=== PATIENT | female | born 1980 | race Caucasian/White ===

== ENCOUNTER 2017-09-13 19:54 | Outpatient (CLI) | payer OTHER ==
--- NOTE | 2017-09-14 11:51 | Ultrasound Report ---
PELVIC ULTRASOUND: 09/13/2017 HISTORY: Pelvic and perineal pain. Family history of ovarian cancer. Last menstrual period 09/06/2017. TECHNIQUE: Transabdominal approach only of the pelvis with saved static images reviewed. FINDINGS: Normal appearing 8.6 x 3 x 3.8 cm anteverted uterus, volume 51 mL. Normal endometrial echo thickness, 6 mm. Right ovary 3.2 x 2.4 x 2.2 cm, volume 8.8 mL, normal echotexture and vascularity. Left ovary 2.6 x 2.3 x 2.6 cm, volume 8 mL. Normal echotexture and Doppler flow. Dominant follicle 1.9 x 1.4 x 1.9 cm. Free fluid: None. IMPRESSION: NEGATIVE PELVIC ULTRASOUND. A SOURCE FOR PAIN IS NOT IDENTIFIED. TD: 09/14/2017 11:38
== END 2017-09-13 19:55 | disposition home or self-care (01) ==
LOC: DI 19:54
PROVIDERS: ATTEND Nurse Practitioner Family
DX: R10.2 Pelvic and perineal pain (principal); Z80.41 Family history of malignant neoplasm of ovary
CPT/HCPCS: 76830; 76856

== ENCOUNTER 2017-12-15 23:24 | Emergency (ER) | payer OTHER ==
[2017-12-15 23:29] VITALS: BP 148/85
[2017-12-15 23:42] LABS: BILIRUBIN,URINE NEGATIVE (NEGATIVE); GLUCOSE, URINE (UA) NEGATIVE (NEGATIVE); KETONES,URINE (UA) NEGATIVE (NEGATIVE); LEUKOCYTE ESTERASE, URINE NEGATIVE (NEGATIVE); NITRITE,URINE NEGATIVE (NEGATIVE); OCCULT BLOOD,URINE TRACE-LYSE (NEGATIVE); PROTEIN,URINE NEGATIVE (NEGATIVE); UROBILINOGEN,URINE 0.2 (NORMAL) E.U./dL (NORMAL)
[2017-12-15 23:44] LABS: CLARITY,URINE CLEAR (CLEAR); HCG UR QUAL NEGATIVE
--- NOTE | 2017-12-16 00:09 | ED Physician Documentation ---
History of Present Illness - Stated complaint Stated Complaint: FEMALE - Chief complaint Chief Complaint: UTI - History obtained from History obtained from: Patient - Additonal information Additional information: 37-year-old female presents the emergency department with 2 hours of dysuria. The patient had frequency and dysuria. The patient denies continuous ongoing abdominal pain or flank pain. No vaginal lesions or discharge. Symptoms are described as moderate. No other associated symptoms. Review of Systems Constitutional: denies: Fever Cardiac: denies: Chest pain / pressure Respiratory: denies: Cough GI: reports: Abdominal Pain (Suprapubic pain). denies: Vomiting : reports: Dysuria Skin: denies: Rash PD PAST MEDICAL HISTORY - Past Medical History Past Medical History: Yes Endocrine/Autoimmune: Other Other Past Medical History: Grave's disease w/ radiation - Past Surgical History Past Surgical History: No - Present Medications Home Medications: Ambulatory Orders Medication Instructions Recorded Confirmed Levothyroxine Sodium [Synthroid] 112 mcg PO DAILY 12/15/17 12/15/17 - Allergies Allergies/Adverse Reactions: Allergies Allergy/AdvReac Type Severity Reaction Status Date / Time No Known Drug Allergies Allergy Verified 12/15/17 23:29 - Social History Does the pt smoke?: Yes Smoking Status: Current every day smoker Does the pt drink ETOH?: No Does the pt have substance abuse?: No - Immunizations Immunizations are current?: Yes - POLST Patient has POLST: No PD ED PE NORMAL - General General: Alert and oriented X 3, No acute distress - HEENT HEENT: Atraumatic, PERRL - Cardiac Cardiac: RRR - Respiratory Respiratory: No respiratory distress - Derm Derm: Normal color - Neuro Neuro: Alert and oriented X 3 - Psych Psych: Normal mood Results - Vitals Vitals: Vital Signs - 24 hr 12/15/17 23:27 Temperature 37.6 C H Heart Rate 81 Respiratory 17 Rate Blood Pressure 148/85 H O2 Saturation 100 Oxygen O2 Source Room air - Labs Labs: Laboratory Tests 12/15/17 23:38 Urine Color LIGHT YELLOW Urine Clarity CLEAR Urine pH 6.0 Ur Specific [place] <=1.005 Urine Protein NEGATIVE Urine Glucose (UA) NEGATIVE Urine Ketones NEGATIVE Urine Occult Blood TRACE-LYSE Urine Nitrite NEGATIVE Urine Bilirubin NEGATIVE Urine Urobilinogen 0.2 (NORMAL) Ur Leukocyte Esterase NEGATIVE Ur Microscopic Review NOT INDICATED Urine Culture Comments NOT INDICATED Urine HCG, Qual NEGATIVE PD MEDICAL DECISION MAKING - ED course ED course: The patient's urinalysis is not suggestive of a acute urinary tract infection so would not start her on antibiotics. Presently, there is no findings to suggest acute appendicitis or ovarian torsion or an intra-abdominal process that would necessitate further workup in the emergency department. I discussed this with the patient and she understands and agrees. I advised outpatient follow-up. I discussed warning signs for appendicitis and other acute intra- abdominal processes and recommended returning to the emergency department immediately for any worsening or any concerns. - Sepsis Event Vital Signs: Vital Signs - 24 hr 12/15/17 23:27 Temperature 37.6 C H Heart Rate 81 Respiratory 17 Rate Blood Pressure 148/85 H O2 Saturation 100 Oxygen O2 Source Room air Departure - Departure Disposition: 01 Home, Self Care Clinical Impression: Dysuria Condition: Good Instructions: ED Dysuria Uncertain Cause Ch Follow-Up: RBO BRYANT PA-C [Primary Care Provider] - Within 3 Days Comments: Please return to the emergency department for worsening symptoms or any concerns
== END 2017-12-16 00:13 | disposition home or self-care (01) ==
LOC: ED 23:24
DX: R30.0 Dysuria (principal); E05.00 Thyrotoxicosis with diffuse goiter without thyrotoxic crisis or storm; F17.200 Nicotine dependence, unspecified, uncomplicated
CPT/HCPCS: 81001; 81003; 81025; 87086; 87491; 87591; 99282; 99283

== ENCOUNTER 2018-01-18 05:24 | Emergency (ER) | payer OTHER ==
[2018-01-18 05:49] LABS: BASOPHILS # (AUTO) 0.1 10^3/uL (0.0-0.1); BASOPHILS % (AUTO) 1.2 %; EOSINOPHILS # (AUTO) 0.1 10^3/uL (0.0-0.7); EOSINOPHILS % (AUTO) 1.9 %; LYMPHOCYTES # (AUTO) 1.5 10^3/uL (1.5-3.5); LYMPHOCYTES % (AUTO) 28.8 %; MEAN CORPUSCULAR HEMOGLOBIN 29.5 pg (27.0-31.0); MEAN CORPUSCULAR HGB CONC 34.1 g/dL (32.0-36.0); MEAN CORPUSCULAR VOLUME 86.7 fL (81.0-99.0); MEAN PLATELET VOLUME 8.8 fL (7.9-10.8); MONOCYTES # (AUTO) 0.5 10^3/uL (0.0-1.0); MONOCYTES % (AUTO) 8.9 %; NEUTROPHILS % (AUTO) 59.2 %; PLT - PLATELET COUNT 224 10^3/uL (130-450); RED BLOOD COUNT 4.38 10^6/uL (4.20-5.40); RED CELL DISTRIBUTION WIDTH 12.9 % (12.0-15.0); WHITE BLOOD COUNT 5.1 x10^3/uL (4.8-10.8)
[2018-01-18] MEDS ORDERED: MAG HYDROX/AL HYDROX/SIMETH 30 ML UDC PO STA (05:55)
[2018-01-18] MEDS ORDERED: LIDOCAINE VISCOUS 2% 15 ML UDC MM STA (05:55)
--- NOTE | 2018-01-18 05:57 | ED Physician Documentation ---
PD HPI CHEST PAIN - Stated complaint Stated Complaint: CHEST PAIN - Chief complaint Chief Complaint: Cardiac - History obtained from History obtained from: Patient - History of Present Illness Timing - onset: How many days ago (2) Timing - onset during: Rest Timing - duration: Days (2) Timing - details: Gradual onset, Still present Quality: Aching Location: Left chest Radiation: Back Improved by: Nothing Worsened by: Inspiration Associated symptoms: Shortness of air. No: Diaphoresis, Nausea, Vomiting, Feeling faint / dizzy, General Weakness, Palpitations, Cough Similar symptoms before: Has not had sx before Recently seen: Clinic Review of Systems Constitutional: reports: Weight Loss (10 lbs in last 2 weeks.). denies: Fever, Chills, Myalgias, Fatigue Eyes: denies: Decreased vision Ears: denies: Ear pain Nose: denies: Rhinorrhea / runny nose, Congestion Throat: denies: Sore throat Cardiac: reports: Chest pain / pressure. denies: Palpitations, Pedal edema, Calf pain Respiratory: reports: Dyspnea. denies: Cough GI: denies: Abdominal Pain, Nausea, Vomiting : denies: Dysuria, Frequency Skin: denies: Rash Musculoskeletal: denies: Neck pain, Back pain Neurologic: denies: Generalized weakness, Focal weakness, Numbness PD PAST MEDICAL HISTORY - Past Medical History Past Medical History: Yes Endocrine/Autoimmune: HyPERthyroidism Other Past Medical History: Has had radiation to thyroid - Past Surgical History Past Surgical History: No - Present Medications Home Medications: Ambulatory Orders Medication Instructions Recorded Confirmed Levothyroxine Sodium [Synthroid] 112 mcg PO DAILY 12/15/17 12/15/17 LORazepam [Ativan] 0.5 - 1 mg PO Q6H PRN #15 tablet 01/18/18 - Allergies Allergies/Adverse Reactions: Allergies Allergy/AdvReac Type Severity Reaction Status Date / Time No Known Drug Allergies Allergy Verified 01/18/18 05:36 - Social History Does the pt smoke?: Yes Smoking Status: Current every day smoker Does the pt drink ETOH?: No Does the pt have substance abuse?: No - Immunizations Immunizations are current?: Yes - POLST Patient has POLST: No PD ED PE NORMAL - Vitals Vital signs reviewed: Yes (hypertensive ) - General General: Alert and oriented X 3, No acute distress, Well developed/nourished - HEENT HEENT: Atraumatic, PERRL, EOMI - Neck Neck: Supple, no meningeal sign, No bony TTP - Cardiac Cardiac: RRR, No murmur - Respiratory Respiratory: No respiratory distress, Clear bilaterally - Abdomen Abdomen: Soft, Non tender - Back Back: No CVA TTP, No spinal TTP - Derm Derm: Normal color, Warm and dry, No rash - Extremities Extremities: No deformity, No edema - Neuro Neuro: Alert and oriented X 3, cash surrender calculator 2-12 intact, No motor deficit, No sensory deficit, Normal speech Eye Opening: Spontaneous Motor: Obeys Commands Verbal: Oriented GCS Score: 15 - Psych Psych: Normal mood, Normal affect Results - Vitals Vitals: Vital Signs - 24 hr 01/18/18 05:25 Temperature 36.7 C Heart Rate 84 Respiratory 16 Rate Blood Pressure 139/90 H O2 Saturation 97 Oxygen O2 Source Room air - EKG (time done) 0528 Rate: Rate (enter#) (78) Rhythm: Other (sinus arrhythmia ) Ischemia: Normal ST segments Compare to prior EKG: Old EKG unavailable Computer interpretation: Agree with computer - Labs Labs: Laboratory Tests 01/18/18 05:30 WBC 5.1 RBC 4.38 Hgb 13.0 Hct 38.0 MCV 86.7 MCH 29.5 MCHC 34.1 RDW 12.9 Plt Count 224 MPV 8.8 Neut # (Auto) 3.0 Lymph # (Auto) 1.5 [place] # (Auto) 0.5 Eos # (Auto) 0.1 Baso # (Auto) 0.1 Absolute Nucleated RBC 0.00 Nucleated RBC % 0.0 - Rads (name of study) 2 veiw chest Radiology: Prelim report reviewed (Impression: Normal two-view chest radiography.), EMP read indepedently, See rad report PD MEDICAL DECISION MAKING - ED course Complexity details: reviewed results, re-evaluated patient, considered differential, d/w patient ED course: 37-year-old female with history of Graves' disease has spent the night up to night unable to sleep with some chest pain that she has been having for 4 days. She also indicates a 10 pound weight loss in the past 2 weeks. She was most recently seen by her primary care and had her thyroid dose reduced and she was asked to reduce her dose to 100 and she reduced it to 112 because she was feeling well otherwise. The patient's workup today is entirely negative with the exception of her TSH being at the bottom end of normal. Her T4 is in the mid range. In discussion with the patient she states that she believes her symptoms are very consistent with what she had when she had Graves' disease. She has never taken benzodiazepine for her thyroid disease and I have encouraged her to try to take some Ativan so that she can get some sleep all her thyroid functions readjust. We will give her a note for work today. - Sepsis Event Vital Signs: Vital Signs - 24 hr 01/18/18 05:25 Temperature 36.7 C Heart Rate 84 Respiratory 16 Rate Blood Pressure 139/90 H O2 Saturation 97 Oxygen O2 Source Room air Departure - Departure Disposition: Home, Self Care Clinical Impression: Atypical chest pain Condition: Stable Instructions: ED Chest Pain Atypical Unkn Cause Follow-Up: ROB BRYANT PA-C [Primary Care Provider] - Prescriptions: LORazepam [Ativan] 0.5 - 1 mg PO Q6H PRN #15 tablet PRN Reason: Anxiety Comments: Today it appears your symptoms of chest pain and inability to sleep are related to your thyroid function. Reduce your dose of Synthroid to 100 mcg/day and use the Ativan as needed for inability to sleep or anxiety. Contact your primary care doctor to inform her of your change in medication.
[2018-01-18 06:02] LABS: ALBUMIN 4.5 g/dL (3.2-5.5); ALBUMIN/GLOBULIN RATIO 1.3 (1.0-2.2); ALKALINE PHOSPHATASE 40 IU/L (42-121); ALT ALANINE AMINOTRANSFERASE < 10 IU/L (10-60); AST ASPARTATE AMINOTRANSFERASE 15 IU/L (10-42); BILIRUBIN,TOTAL 0.7 mg/dL (0.2-1.0); BUN - BLOOD UREA NITROGEN 8 mg/dL (6-20); CALCIUM 9.1 mg/dL (8.5-10.3); CARBON DIOXIDE - CO2 21 mmol/L (21-32); CHLORIDE 108 mmol/L (101-111); CREATININE 0.6 mg/dL (0.4-1.0); GFR - MDRD 113 (>89); GLUCOSE 112 mg/dL (70-100); LIPASE 27 U/L (22-51); SODIUM 137 mmol/L (135-145); TOTAL PROTEIN 7.9 g/dL (6.7-8.2)
[2018-01-18 06:16] LABS: T4 (THYROXINE) 9.92 ug/dL (6.09-12.23)
--- NOTE | 2018-01-18 06:18 | XRAY Report ---
Reason: left sided chest pain Procedure Date: 01/18/2018 Accession Number: [id number] / [id number] Procedure: XR - Chest 2 View X-Ray CPT Code: 47505 FULL RESULT: EXAM: CHEST RADIOGRAPHY EXAM DATE: 01/18/2018 05:55 AM. CLINICAL HISTORY: Left sided chest pain. COMPARISON: None. TECHNIQUE: 2 views. FINDINGS: Lungs/Pleura: No focal opacities evident. No pleural effusion. No pneumothorax. Normal volumes. Mediastinum: Heart and mediastinal contours are unremarkable. Other: None. IMPRESSION: Normal 2-view chest radiography. RADIA
[2018-01-18 06:19] LABS: THYROID STIMULATING HORMONE 0.34 uIU/mL (0.34-5.60)
[2018-01-18 06:53] VITALS: BP 113/74
== END 2018-01-18 06:54 | disposition home or self-care (01) ==
LOC: ED 05:24
DX: R07.89 Other chest pain (principal); E05.00 Thyrotoxicosis with diffuse goiter without thyrotoxic crisis or storm; F17.200 Nicotine dependence, unspecified, uncomplicated; I49.8 Other specified cardiac arrhythmias
CPT/HCPCS: 36415; 71046; 80053; 83690; 84436; 84443; 84484; 85025; 85379; 93005; 99284; A9270

== ENCOUNTER 2018-09-01 21:42 | Emergency (ER) | payer OTHER ==
[2018-09-01 22:09] LABS: BILIRUBIN,URINE NEGATIVE (NEGATIVE); GLUCOSE, URINE (UA) NEGATIVE (NEGATIVE); KETONES,URINE (UA) NEGATIVE (NEGATIVE); LEUKOCYTE ESTERASE, URINE NEGATIVE (NEGATIVE); NITRITE,URINE NEGATIVE (NEGATIVE); OCCULT BLOOD,URINE MODERATE (NEGATIVE); PROTEIN,URINE NEGATIVE (NEGATIVE); UROBILINOGEN,URINE 0.2 (NORMAL) E.U./dL (NORMAL)
[2018-09-01 22:10] LABS: CLARITY,URINE CLEAR (CLEAR)
[2018-09-01 22:15] LABS: HCG UR QUAL NEGATIVE
[2018-09-01 22:19] LABS: BACTERIA,URINE Few /HPF (None Seen); RBC,URINE 0-5 /HPF (0-5); SQUAMOUS EPITHELIAL CELL,UR FEW Squamous (<= Few)
--- NOTE | 2018-09-01 22:38 | ED Physician Documentation ---
PD HPI FEMALE - Stated complaint Stated Complaint: FEM - Chief complaint Chief Complaint: Abd Pain - History obtained from History obtained from: Patient, Family - History of Present Illness Timing - onset: How many days ago (3) Timing - duration: Days (3) Timing - details: Gradual onset Pain level max: 0 Pain level max: 0 Associated symptoms: Fever (subjective "low grade"), Vaginal pain, Vaginal discharge (yellow). No: Abdominal pain, Back pain, Vaginal bleeding, Genital sore/lesion, Dysuria, Urinary frequency, Hematuria Contributing factors: Sexually active ( for several years. no change in sexual partners). No: Recently seen: Not recently seen Review of Systems Ten Systems: 10 systems reviewed and negative Constitutional: denies: Chills Cardiac: denies: Chest pain / pressure Respiratory: denies: Cough GI: denies: Nausea, Vomiting, Diarrhea Skin: denies: Rash Musculoskeletal: denies: Neck pain, Back pain Neurologic: denies: Headache PD PAST MEDICAL HISTORY - Past Medical History Past Medical History: Yes Endocrine/Autoimmune: HyPERthyroidism - Past Surgical History Past Surgical History: No - Present Medications Home Medications: Ambulatory Orders Medication Instructions Recorded Confirmed Levothyroxine Sodium [Synthroid] 125 mcg PO DAILY 12/15/17 12/15/17 Albuterol Sulfate [Albuterol 8.5 gm IH PRN PRN 09/01/18 09/01/18 Sulfate Hfa] Metronidazole [Flagyl] 500 mg PO BID #14 tablet 09/01/18 - Allergies Allergies/Adverse Reactions: Allergies Allergy/AdvReac Type Severity Reaction Status Date / Time No Known Drug Allergies Allergy Verified 09/01/18 21:48 - Social History Does the pt smoke?: Yes Smoking Status: Current every day smoker Does the pt drink ETOH?: No Does the pt have substance abuse?: No - Immunizations Immunizations are current?: Yes - POLST Patient has POLST: No PD ED PE NORMAL - Vitals Vital signs reviewed: Yes - General General: Alert and oriented X 3, No acute distress - HEENT HEENT: Moist mucous membranes - Neck Neck: Supple, no meningeal sign - Cardiac Cardiac: RRR - Respiratory Respiratory: No respiratory distress, Clear bilaterally - Abdomen Abdomen: Soft, Non tender, Non distended - Female Female : Clinical Education Coordinator present (Jia Adams RN), Other (White/yellow vaginal discharge with vaginal wall irritation. No lesions. No bleeding.) - Derm Derm: Warm and dry - Neuro Neuro: Alert and oriented X 3 Results - Vitals Vitals: Vital Signs - 24 hr 09/01/18 09/01/18 21:44 22:45 Temperature 37.3 C Heart Rate 75 73 Respiratory 16 17 Rate Blood Pressure 138/73 H 140/93 H O2 Saturation 100 100 Oxygen O2 Source Room air - Labs Labs: Microbiology 09/01/18 22:27 CHRISTINA Preparation - Final Other - Vaginal 09/01/18 22:27 Wet Prep - Final Vaginal Laboratory Tests 09/01/18 22:00 Urine Color YELLOW Urine Clarity CLEAR Urine pH 6.0 Ur Specific [place] <=1.005 Urine Protein NEGATIVE Urine Glucose (UA) NEGATIVE Urine Ketones NEGATIVE Urine Occult Blood MODERATE H Urine Nitrite NEGATIVE Urine Bilirubin NEGATIVE Urine Urobilinogen 0.2 (NORMAL) Ur Leukocyte Esterase NEGATIVE Urine RBC 0-5 Urine WBC 0-3 Ur Squamous Epith Cells FEW Squamous Urine Bacteria Few Ur Microscopic Review INDICATED Urine Culture Comments NOT INDICATED Urine HCG, Qual NEGATIVE PD MEDICAL DECISION MAKING - ED course Complexity details: reviewed results, re-evaluated patient, considered differential, d/w patient, d/w family ED course: 37-year-old female with what appears to be bacterial vaginitis clinically. Will place on Flagyl for home. She is well-appearing, nontoxic. She had GC and Chlamydia testing done earlier today [facility]. Exam does not appear consistent with an STI. Patient counseled regarding signs and symptoms for which I believe and urgent re-evaluation would be necessary. Patient with good understanding of and agreement to plan and is comfortable going home at this time This document was made in part using voice recognition software. While efforts are made to proofread this document, sound alike and grammatical errors may occur. Departure - Departure Disposition: Home, Self Care Clinical Impression: Bacterial vaginitis Condition: Good Instructions: ED Vaginosis Bacterial Follow-Up: Galina Myers MD [Primary Care Provider] - Within 1 week Prescriptions: Metronidazole [Flagyl] 500 mg PO BID #14 tablet Comments: Take the Flagyl until gone. Return if you worsen. Do not drink alcohol with this. This should improve over the next few days. Discharge Date/Time: 09/01/18 22:50
[2018-09-01] MEDS ORDERED: metroNIDAZOLE 250 MG TABLET PO STA (22:39)
[2018-09-01 22:46] VITALS: BP 140/93
== END 2018-09-01 22:50 | disposition home or self-care (01) ==
LOC: ED 21:42
DX: N76.0 Acute vaginitis (principal); B96.89 Other specified bacterial agents as the cause of diseases classified elsewhere; F17.200 Nicotine dependence, unspecified, uncomplicated
CPT/HCPCS: 81001; 81025; 87210; 87220; 99283; A9270; 81003; 87086

== ENCOUNTER 2018-11-14 17:39 | Outpatient (CLI) | payer OTHER | END 2018-11-14 17:40 | disposition critical access hospital (66) | LOC: EMS 17:39 | PROVIDERS: ATTEND Surgery | DX: S09.93XA Unspecified injury of face, initial encounter (principal); M54.2 Cervicalgia; R42 Dizziness and giddiness; R55 Syncope and collapse; W19.XXXA Unspecified fall, initial encounter; Y92.009 Unspecified place in unspecified non-institutional (private) residence as the place of occurrence of the external cause | CPT/HCPCS: A0425; A0427 ==

== ENCOUNTER 2018-11-14 17:58 | Emergency (ER) | payer OTHER ==
[2018-11-14] MEDS ORDERED: SODIUM CHLORIDE 0.9% 1,000 ML IV ONE ×3 (18:14→20:05)
[2018-11-14 18:26] LABS: BASOPHILS # (AUTO) 0.1 10^3/uL (0.0-0.1); BASOPHILS % (AUTO) 1.3 %; EOSINOPHILS # (AUTO) 0.2 10^3/uL (0.0-0.7); HGB - HEMOGLOBIN 12.1 g/dL (12.0-16.0); LYMPHOCYTES # (AUTO) 1.9 10^3/uL (1.5-3.5); LYMPHOCYTES % (AUTO) 26.7 %; MEAN CORPUSCULAR HEMOGLOBIN 28.8 pg (27.0-31.0); MEAN CORPUSCULAR HGB CONC 32.8 g/dL (32.0-36.0); MEAN CORPUSCULAR VOLUME 87.9 fL (81.0-99.0); MEAN PLATELET VOLUME 10.5 fL (7.9-10.8); MONOCYTES # (AUTO) 0.7 10^3/uL (0.0-1.0); NEUTROPHILS # (AUTO) 4.2 10^3/uL (1.5-6.6); NEUTROPHILS % (AUTO) 58.7 %; PLT - PLATELET COUNT 229 10^3/uL (130-450); RED CELL DISTRIBUTION WIDTH 12.6 % (12.0-15.0); WHITE BLOOD COUNT 7.1 x10^3/uL (4.8-10.8)
[2018-11-14] MEDS ORDERED: KETOROLAC 30 MG/ML VIAL IVP STA (18:27)
--- NOTE | 2018-11-14 18:29 | ED Physician Documentation ---
History of Present Illness - Stated complaint Stated Complaint: SYNCOPE - Chief complaint Chief Complaint: Neuro - History obtained from History obtained from: Patient, EMS - History of Present Illness Timing: Today Pain level max: 6 Pain level now: 5 - Additonal information Additional information: 38-year-old female presents to the emergency department after having diarrhea several times a day. She had cramping in her stomach, went to go to the bathroom again felt lightheaded dizzy and passed out. She has had, right facial pain and neck pain. Did not have any palpitations or chest pain. No nausea or vomiting. Last menstrual period was last week. No changes to her medications. No similar events in the past. She fell face forward and landed on the right side of the face. Worse with palpation and movement. Better with rest. Review of Systems Ten Systems: 10 systems reviewed and negative Constitutional: denies: Fever, Chills Nose: denies: Rhinorrhea / runny nose, Congestion Throat: denies: Sore throat Cardiac: denies: Chest pain / pressure, Palpitations Respiratory: denies: Dyspnea, Cough GI: reports: Diarrhea. denies: Nausea, Vomiting : denies: Dysuria, Frequency, Hesitancy Skin: denies: Rash Musculoskeletal: reports: Neck pain. denies: Back pain Neurologic: reports: Headache, Head injury. denies: Focal weakness, Numbness, Confused PD PAST MEDICAL HISTORY - Past Medical History Past Medical History: Yes Endocrine/Autoimmune: HyPERthyroidism - Past Surgical History Past Surgical History: No - Present Medications Home Medications: Ambulatory Orders Medication Instructions Recorded Confirmed Levothyroxine Sodium [Synthroid] 125 mcg PO DAILY 12/15/17 12/15/17 Albuterol Sulfate [Albuterol 8.5 gm IH PRN PRN 09/01/18 09/01/18 Sulfate Hfa] Metronidazole [Flagyl] 500 mg PO BID #14 tablet 09/01/18 Cephalexin [Keflex] 500 mg PO Q6H #28 capsule 11/14/18 Cetirizine [ZyrTEC] 10 mg PO DAILY #14 tablet 11/14/18 Chlorhexidine Gluconate [Peridex] 15 ml MM TID #120 ml 11/14/18 Hydrocodone/Acetaminophen 1 tab PO Q6H PRN #10 tablet 11/14/18 [Hydrocodon-Acetaminophen 5-325] - Allergies Allergies/Adverse Reactions: Allergies Allergy/AdvReac Type Severity Reaction Status Date / Time No Known Drug Allergies Allergy Verified 11/14/18 18:04 - Social History Does the pt smoke?: Yes Smoking Status: Current every day smoker Does the pt drink ETOH?: No Does the pt have substance abuse?: No - Immunizations Immunizations are current?: Yes - POLST Patient has POLST: No PD ED PE NORMAL - Vitals Vital signs reviewed: Yes - General General: Alert and oriented X 3, No acute distress, Well developed/nourished - HEENT HEENT: PERRL, EOMI, Ears normal, Moist mucous membranes, Other (No scalp hematomas. There is tenderness over the right maxilla. There is a 1 cm laceration inside the mouth on the upper gums and lip. There are multiple abrasions on the gums as well. Dentition is benign) - Neck Neck: Supple, no meningeal sign, Other (Mild tenderness palpation midline. No step-off or deformity) - Cardiac Cardiac: RRR, Strong equal pulses - Respiratory Respiratory: No respiratory distress, Clear bilaterally - Abdomen Abdomen: Soft, Non tender, Non distended - Back Back: No spinal TTP - Derm Derm: Warm and dry - Extremities Extremities: No tenderness to palpate, Normal ROM s pain - Neuro Neuro: Alert and oriented X 3, data governance analyst 2-12 intact, No motor deficit, No sensory deficit, Normal speech Eye Opening: Spontaneous Motor: Obeys Commands Verbal: Oriented GCS Score: 15 - Psych Psych: Normal mood, Normal affect Results - Vitals Vitals: Oxygen O2 Source Room air - EKG (time done) 1830 Rate: Rate (enter#) (62) Rhythm: NSR [place]: Normal Intervals: Normal [place] QRS: Normal Ischemia: Normal ST segments - Labs Labs: Laboratory Tests 11/14/18 11/14/18 11/14/18 18:21 18:21 18:21 WBC 7.1 RBC 4.20 Hgb 12.1 Hct 36.9 L MCV 87.9 MCH 28.8 MCHC 32.8 RDW 12.6 Plt Count 229 MPV 10.5 Neut # (Auto) 4.2 Lymph # (Auto) 1.9 [place] # (Auto) 0.7 Eos # (Auto) 0.2 Baso # (Auto) 0.1 Absolute Nucleated RBC 0.00 Nucleated RBC % 0.0 Sodium 138 Potassium 3.9 Chloride 104 Carbon Dioxide 22 Anion Gap 12.0 BUN 10 Creatinine 0.8 Estimated GFR (MDRD) 81 L Glucose 107 H Calcium 9.0 Total Bilirubin 0.7 AST 13 ALT 10 Alkaline Phosphatase 33 L Total Protein 7.0 Albumin 4.0 Globulin 3.0 Albumin/Globulin Ratio 1.3 Lipase 24 Serum HCG, Qual NEGATIVE - Rads (name of study) head ct Radiology: Prelim report reviewed, EMP read contemporaneously, See rad report (No acute intracranial abnormality) cervical spine ct Radiology: Prelim report reviewed, EMP read contemporaneously, See rad report (normal) maxillofacial ct Radiology: Prelim report reviewed, EMP read contemporaneously, See rad report (Multiple maxillary bone fractures, most conspicuous for the mildly posterior displaced mildly comminuted fractures of the anterior Right maxillary sinus wall) Procedures - Laceration (location) inner upper lip Length in cm: 1 Wound type: Linear, Clean Neurovascular status: Sensory intact, Motor intact, Vascular intact Anesthesia: LET Wound Preparation: Irrigated copiously NS, Wound explored, To the base Deep layer closure: Vicryl, size #-0 - enter number (4), # sutures - enter number (2) Other: Patient tolerated well, No complications Complexity: Simple PD MEDICAL DECISION MAKING - ED course Complexity details: reviewed results, re-evaluated patient, considered differential, d/w patient, d/w family, d/w cisco consultant ED course: 38-year-old female status post a syncopal event. Appears to be vasovagal syncope. Abdomen is soft, nontender nondistended. No acute findings on telemetry or EKG. No significant laboratory abnormalities. She does have significant right maxillary sinus fractures. Discussed the case with oral maxillofacial surgery, Dr. Hutchins, who will follow up with the patient in the office. Will place her on Keflex as well. Also place her on chlorhexidine. The inner lip laceration was repaired. Patient counseled regarding signs and symptoms for which I believe and urgent re-evaluation would be necessary. Patient with good understanding of and agreement to plan and is comfortable going home at this time This document was made in part using voice recognition software. While efforts are made to proofread this document, sound alike and grammatical errors may occur. Departure - Departure Disposition: 01 Home, Self Care Clinical Impression: Vasovagal syncope Maxillary sinus fracture Qualifiers: Encounter type: initial encounter Fracture type: closed Qualified Code(s): S02.401A - Maxillary fracture, unspecified side, initial encounter for closed fracture Laceration of mouth Qualifiers: Encounter type: initial encounter Qualified Code(s): S01.512A - Laceration without foreign body of oral cavity, initial encounter Condition: Good Instructions: ED Fx Face, ED Syncope Vasovagal Follow-Up: Galina Myers MD [Primary Care Provider] - Alfredo Hutchins DDS [Provider Admit Priv/Credential] - ALFREDO HUTCHINS [Physician No Access] - Within 1 week Prescriptions: Cephalexin [Keflex] 500 mg PO Q6H #28 capsule Cetirizine [ZyrTEC] 10 mg PO DAILY #14 tablet Chlorhexidine Gluconate [Peridex] 15 ml MM TID #120 ml Hydrocodone/Acetaminophen [Hydrocodon-Acetaminophen 5-325] 1 tab PO Q6H PRN #10 tablet PRN Reason: pain Comments: Follow-up with Dr. Hutchins for further care. Return if you worsen. Drink plenty of fluids. Do not blow your nose. You can use saline nasal spray and inhaled them in your nose as needed. Discharge Date/Time: 11/14/18 21:30
[2018-11-14 18:45] LABS: ALBUMIN/GLOBULIN RATIO 1.3 (1.0-2.2); BILIRUBIN,TOTAL 0.7 mg/dL (0.2-1.0); CREATININE 0.8 mg/dL (0.4-1.0)
[2018-11-14 18:54] LABS: HCG,QUALITATIVE BLOOD NEGATIVE
--- NOTE | 2018-11-14 19:22 | CT Report ---
Reason: syncope, head, neck and face pain Procedure Date: 11/14/2018 Accession Number: [id number] / [id number] Procedure: CT - MAXILLOFACIAL WO CPT Code: FULL RESULT: EXAM: CT MAXILLOFACIAL WITHOUT CONTRAST EXAM DATE: 11/14/2018 06:50 PM. CLINICAL HISTORY: Pain post injury. Syncope. COMPARISONS: None. TECHNIQUE: Thin-section axial images were acquired of the face without contrast. Post-processing: Coronal and sagittal reformats. Other: None. In accordance with CT protocol optimization, one or more of the following dose reduction techniques were utilized for this exam: automated exposure control, adjustment of mA and/or KV based on patient size, or use of iterative reconstructive technique. FINDINGS: Minimally displaced fracture of the frontal process of the right maxilla. Probable minimally displaced fracture of the anterior nasal spine of the maxilla. Posteriorly displaced comminuted fractures of the anterior wall of the right maxillary sinus. Fracture fragment displacement posteriorly up to 3-4 mm. The fracture defect in the anterior right maxillary sinus is about 1.5 cm in overall width. Layering fluid in the right maxillary sinus, likely blood. Additional nonspecific multifocal paranasal sinus mucosal thickening. Clear mastoids. Soft tissue swelling with a small amount of gas is present anterior to the maxilla predominantly on the right. IMPRESSION: Multiple maxillary bone fractures, most conspicuous are the mildly posteriorly displaced and comminuted fractures of the anterior right maxillary sinus wall. RADIA
--- NOTE | 2018-11-14 19:31 | CT Report ---
Reason: syncope, head, neck and face pain Procedure Date: 11/14/2018 Accession Number: [id number] / [id number] Procedure: CT - HEAD WO CPT Code: FULL RESULT: EXAM: CT HEAD EXAM DATE: 11/14/2018 06:50 PM. CLINICAL HISTORY: Pain post injury. Syncope. COMPARISON: None. TECHNIQUE: Multiaxial CT images were obtained from the foramen magnum to the vertex. Reformats: Sagittal and coronal. IV contrast: None. In accordance with CT protocol optimization, one or more of the following dose reduction techniques were utilized for this exam: automated exposure control, adjustment of mA and/or KV based on patient size, or use of iterative reconstructive technique. FINDINGS: Dependent fluid in the right maxillary sinus, likely blood from separately reported facial fractures that are not demonstrated on this CT of the brain. Intact calvarium. Unremarkable appearance of the brain. No evidence for acute stroke or hemorrhage. No hydrocephalus. Probable incidental choroidal fissure cyst on the right. IMPRESSION: No CT evidence of acute intracranial abnormality. RADIA
--- NOTE | 2018-11-14 19:31 | CT Report ---
Reason: syncope, head, neck and face pain Procedure Date: 11/14/2018 Accession Number: [id number] / [id number] Procedure: CT - CERVICAL SPINE WO CPT Code: FULL RESULT: EXAM: CT CERVICAL SPINE WITHOUT CONTRAST DATE: 11/14/2018 06:50 PM. HISTORY: Syncope. Head, neck and face pain. COMPARISONS: None. TECHNIQUE: Thin-section axial images were acquired of the cervical spine without contrast. Post-processing: Coronal and sagittal reformats. Other: None. In accordance with CT protocol optimization, one or more of the following dose reduction techniques were utilized for this exam: automated exposure control, adjustment of mA and/or KV based on patient size, or use of iterative reconstructive technique. FINDINGS: Alignment: No scoliosis or spondylolisthesis. Bones: No fracture or bone lesion. Interspace Levels/Facets: C1-C2: Unremarkable. C2-C3: Unremarkable. C3-C4: Unremarkable. C4-C5: Unremarkable. C5-C6: Unremarkable. C6-C7: Unremarkable. C7-T1: Unremarkable. Musculature: Normal. No fatty atrophy. Other: The paravertebral and prevertebral soft tissues are unremarkable. The lung apices are clear. IMPRESSION: Normal cervical spine CT. RADIA
[2018-11-14] MEDS ORDERED: HYDROcod/ACETAM 5/325 MG TABLET PO STA ×2 (20:05→20:12)
[2018-11-14] MEDS ORDERED: LIDOCAINE-EPINEPH-TETRACAINE 3 ML SYRINGE TOP STA (20:37)
[2018-11-14 21:31] VITALS: BP 119/79
== END 2018-11-14 21:30 | disposition home or self-care (01) ==
LOC: EDBD → EDUNIT# → ED 17:58
DX: R55 Syncope and collapse (principal); S02.40CA Maxillary fracture, right side, initial encounter for closed fracture; S01.511A Laceration without foreign body of lip, initial encounter; S01.512A Laceration without foreign body of oral cavity, initial encounter; M54.2 Cervicalgia; W18.30XA Fall on same level, unspecified, initial encounter; R10.9 Unspecified abdominal pain; R19.7 Diarrhea, unspecified; F17.200 Nicotine dependence, unspecified, uncomplicated
CPT/HCPCS: 12011; 36415; 70450; 70486; 72125; 80053; 83690; 84703; 85025; 93005; 96361; 96374; 99284; A9270

== ENCOUNTER 2018-12-26 10:10 | Emergency (ER) | payer OTHER ==
[2018-12-26 10:40] LABS: BILIRUBIN,URINE NEGATIVE (NEGATIVE); CLARITY,URINE CLEAR (CLEAR); GLUCOSE, URINE (UA) NEGATIVE (NEGATIVE); KETONES,URINE (UA) NEGATIVE (NEGATIVE); LEUKOCYTE ESTERASE, URINE NEGATIVE (NEGATIVE); NITRITE,URINE NEGATIVE (NEGATIVE); OCCULT BLOOD,URINE TRACE-LYSE (NEGATIVE); PROTEIN,URINE NEGATIVE (NEGATIVE); UROBILINOGEN,URINE 0.2 (NORMAL) E.U./dL (NORMAL)
[2018-12-26 10:41] LABS: HCG UR QUAL NEGATIVE
[2018-12-26 10:42] LABS: BASOPHILS # (AUTO) 0.1 10^3/uL (0.0-0.1); BASOPHILS % (AUTO) 1.9 %; EOSINOPHILS # (AUTO) 0.2 10^3/uL (0.0-0.7); EOSINOPHILS % (AUTO) 5.6 %; HGB - HEMOGLOBIN 13.4 g/dL (12.0-16.0); LYMPHOCYTES # (AUTO) 1.4 10^3/uL (1.5-3.5); LYMPHOCYTES % (AUTO) 32.5 %; MEAN CORPUSCULAR HEMOGLOBIN 29.3 pg (27.0-31.0); MEAN CORPUSCULAR HGB CONC 32.9 g/dL (32.0-36.0); MEAN CORPUSCULAR VOLUME 89.1 fL (81.0-99.0); MEAN PLATELET VOLUME 10.9 fL (7.9-10.8); MONOCYTES # (AUTO) 0.4 10^3/uL (0.0-1.0); MONOCYTES % (AUTO) 10.4 %; NEUTROPHILS # (AUTO) 2.1 10^3/uL (1.5-6.6); NEUTROPHILS % (AUTO) 49.4 %; PLT - PLATELET COUNT 244 10^3/uL (130-450); RED BLOOD COUNT 4.57 10^6/uL (4.20-5.40); RED CELL DISTRIBUTION WIDTH 12.6 % (12.0-15.0); WHITE BLOOD COUNT 4.3 x10^3/uL (4.8-10.8)
--- NOTE | 2018-12-26 10:52 | ED Physician Documentation ---
PD HPI ABD PAIN - Stated complaint Stated Complaint: ABD PX - Chief complaint Chief Complaint: Abd Pain - History obtained from History obtained from: Patient - History of Present Illness Timing - onset: How many weeks ago (7-8) Timing - duration: Weeks Timing - details: Abrupt onset, Waxing and waning (she had diarrhea severely the first week, so much so that she had syncope and hurt face. She was put on Keflex for sinus fractures. Had some less diarrhea for a week but then back again. Finished the abx and then started probiotics. Undulating degree of diarrhea over the next few weeks. Improved again for a week or so, but now more diarrhea again this past week.) Quality: Cramping Location: Periumbilical, LLQ Radiation: No: Lower back Improved by: No: Eating Worsened by: Eating (feels nauseated and less appetite, cramps intermittent.) Associated symptoms: Nausea, Diarrhea, Loss of appetite, Weight loss (10 lbs the past 2 months.). No: Fever, Vomiting, Constipation, Hematochezia, Dysuria Similar symptoms before: Has not had sx before Recently seen: Clinic (max/fac surgery after injuries, and did not need surgery. Facial fractures healed okay.), Emergency Dept (2 months ago) Review of Systems Constitutional: reports: Myalgias, Fatigue. denies: Fever, Chills Nose: denies: Rhinorrhea / runny nose, Congestion Throat: denies: Sore throat Respiratory: denies: Cough GI: reports: Abdominal Pain, Nausea. denies: Abdominal Swelling, Vomiting, Constipation Skin: denies: Rash, Lesions Neurologic: reports: Generalized weakness. 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 : None HEENT: None Psych: Anxiety Musculoskeletal: None Derm: None - Past Surgical History Past Surgical History: No - Present Medications Home Medications: Ambulatory Orders Medication Instructions Recorded Confirmed Levothyroxine Sodium [Synthroid] 125 mcg PO DAILY 12/15/17 12/15/17 Albuterol Sulfate [Albuterol 8.5 gm IH PRN PRN 09/01/18 09/01/18 Sulfate Hfa] Metronidazole [Flagyl] 500 mg PO BID #14 tablet 09/01/18 Cephalexin [Keflex] 500 mg PO Q6H #28 capsule 11/14/18 Cetirizine [ZyrTEC] 10 mg PO DAILY #14 tablet 11/14/18 Chlorhexidine Gluconate [Peridex] 15 ml MM TID #120 ml 11/14/18 Hydrocodone/Acetaminophen 1 tab PO Q6H PRN #10 tablet 11/14/18 [Hydrocodon-Acetaminophen 5-325] Famotidine 20 mg PO DAILY #30 tablet 12/26/18 Loperamide [Imodium] 2 mg PO QID PRN #20 capsule 12/26/18 Metronidazole [Flagyl] 500 mg PO BID #14 tablet 12/26/18 Ondansetron Odt [Zofran] 4 mg TL Q6H PRN #15 tablet 12/26/18 Saccharomyces Boulardii [Florastor] 250 mg PO BID #14 capsule 12/26/18 - Allergies Allergies/Adverse Reactions: Allergies Allergy/AdvReac Type Severity Reaction Status Date / Time No Known Drug Allergies Allergy Verified 12/26/18 10:15 - Social History Does the pt smoke?: Yes Smoking Status: Current every day smoker Does the pt drink ETOH?: No Does the pt have substance abuse?: No - Immunizations Immunizations are current?: Yes - POLST Patient has POLST: No PD ED PE NORMAL - Vitals Vital signs reviewed: Yes - General General: Alert and oriented X 3, No acute distress, Well developed/nourished - HEENT HEENT: Pharynx benign - Neck Neck: Supple, no meningeal sign, No adenopathy - Cardiac Cardiac: RRR, No murmur - Respiratory Respiratory: Clear bilaterally - Abdomen Abdomen: Normal bowel sounds, Soft, Non tender, Non distended - Female Female : Deferred - Rectal Rectal: Deferred - Back Back: No CVA TTP - Derm Derm: Normal color, Warm and dry - Neuro Neuro: Alert and oriented X 3, No motor deficit, Normal speech Results - Vitals Vitals: Vital Signs - 24 hr 12/26/18 12/26/18 12/26/18 10:13 12:17 14:13 Temperature 35.7 C L 36.8 C Heart Rate 82 78 73 Respiratory 19 14 18 Rate Blood Pressure 141/96 H 124/68 105/69 O2 Saturation 100 100 98 Oxygen O2 Source Room air - Labs Labs: Laboratory Tests 12/26/18 12/26/18 12/26/18 10:32 10:32 10:32 WBC 4.3 L RBC 4.57 Hgb 13.4 Hct 40.7 MCV 89.1 MCH 29.3 MCHC 32.9 RDW 12.6 Plt Count 244 MPV 10.9 H Neut # (Auto) 2.1 Lymph # (Auto) 1.4 L [place] # (Auto) 0.4 Eos # (Auto) 0.2 Baso # (Auto) 0.1 Absolute Nucleated RBC 0.00 Nucleated RBC % 0.0 ESR 6 Sodium 133 L Potassium 3.9 Chloride 99 L Carbon Dioxide 23 Anion Gap 11.0 BUN 5 L Creatinine 0.8 Estimated GFR (MDRD) 81 L Glucose 99 Calcium 9.3 Magnesium Total Bilirubin 1.0 AST 17 ALT < 10 L Alkaline Phosphatase 36 L C-Reactive Protein Total Protein 8.6 H Albumin 4.7 Globulin 3.9 Albumin/Globulin Ratio 1.2 Lipase 27 TSH Urine Color Urine Clarity Urine pH Ur Specific [place] Urine Protein Urine Glucose (UA) Urine Ketones Urine Occult Blood Urine Nitrite Urine Bilirubin Urine Urobilinogen Ur Leukocyte Esterase Ur Microscopic Review Urine Culture Comments Urine HCG, Qual 12/26/18 12/26/18 12/26/18 10:32 10:32 10:36 WBC RBC Hgb Hct MCV MCH MCHC RDW Plt Count MPV Neut # (Auto) Lymph # (Auto) [place] # (Auto) Eos # (Auto) Baso # (Auto) Absolute Nucleated RBC Nucleated RBC % ESR Sodium Potassium Chloride Carbon Dioxide Anion Gap BUN Creatinine Estimated GFR (MDRD) Glucose Calcium Magnesium 2.4 Total Bilirubin AST ALT Alkaline Phosphatase C-Reactive Protein < 1.0 Total Protein Albumin Globulin Albumin/Globulin Ratio Lipase TSH 1.12 Urine Color LT. YELLOW Urine Clarity CLEAR Urine pH 6.0 Ur Specific [place] <=1.005 Urine Protein NEGATIVE Urine Glucose (UA) NEGATIVE Urine Ketones NEGATIVE Urine Occult Blood TRACE-LYSE Urine Nitrite NEGATIVE Urine Bilirubin NEGATIVE Urine Urobilinogen 0.2 (NORMAL) Ur Leukocyte Esterase NEGATIVE Ur Microscopic Review NOT INDICATED Urine Culture Comments NOT INDICATED Urine HCG, Qual NEGATIVE PD MEDICAL DECISION MAKING - ED course Complexity details: reviewed results (labs are okay. She was unable to produce stool sample here. Given spec kit for home. ), re-evaluated patient (consider bacterial enteritis most likely. Would repeat stool studies. Can empirically start flagyl after sample obtained (her dog had diarrhea shortly before she started and was treated by Vet empirically with FLagyl and got better.)), considered differential (diarrhea for 7-8 weeks. Had stool studies in clinic that were neg. However symptoms persist. ), d/w patient Departure - Departure Disposition: 01 Home, Self Care Clinical Impression: Generalized weakness Diarrhea Qualifiers: Diarrhea type: presumed infectious Qualified Code(s): R19.7 - Diarrhea, unspecified Condition: Stable Record reviewed to determine appropriate education?: Yes Instructions: ED Diarrhea Bacterial Follow-Up: Galina Myers MD [Primary Care Provider] - Prescriptions: Famotidine 20 mg PO DAILY #30 tablet Loperamide [Imodium] 2 mg PO QID PRN #20 capsule PRN Reason: Diarrhea Metronidazole [Flagyl] 500 mg PO BID #14 tablet Ondansetron Odt [Zofran] 4 mg TL Q6H PRN #15 tablet PRN Reason: Nausea / Vomiting Saccharomyces Boulardii [Florastor] 250 mg PO BID #14 capsule Comments: Bring a sample of your diarrhea into your primary care for repeat testing for culture and C. difficile. He can often take a couple of test to distinguish what it is causing the diarrhea. Your inflammation markers of sed rate and CRP are normal so I be less inclined to think this is immune/inflammatory such as colitis or Crohn's. At this point would presume more likely infectious. However follow-up with your primary care regarding it. Ondansetron if needed for nausea. Famotidine to decrease stomach acids and hopefully that would increase your appetite better. Probiotics twice daily for the next week. Start Flagyl pending culture results. Imodium if needed for diarrhea. If this still is ongoing with negative cultures, the next testing likely would be a colonoscopy. Forms: Activity restrictions Discharge Date/Time: 12/26/18 14:32
[2018-12-26 10:55] LABS: ALBUMIN 4.7 g/dL (3.2-5.5); ALBUMIN/GLOBULIN RATIO 1.2 (1.0-2.2); ALKALINE PHOSPHATASE 36 IU/L (42-121); ALT ALANINE AMINOTRANSFERASE < 10 IU/L (10-60); AST ASPARTATE AMINOTRANSFERASE 17 IU/L (10-42); BUN - BLOOD UREA NITROGEN 5 mg/dL (6-20); CALCIUM 9.3 mg/dL (8.5-10.3); CARBON DIOXIDE - CO2 23 mmol/L (21-32); CHLORIDE 99 mmol/L (101-111); CREATININE 0.8 mg/dL (0.4-1.0); GFR - MDRD 81 (>89); GLUCOSE 99 mg/dL (70-100); LIPASE 27 U/L (22-51); SODIUM 133 mmol/L (135-145); TOTAL PROTEIN 8.6 g/dL (6.7-8.2)
[2018-12-26] MEDS ORDERED: KETOROLAC 15 MG/ML VIAL IVP STA (11:35)
[2018-12-26] MEDS ORDERED: SODIUM CHLORIDE 0.9% 1,000 ML IV ONE (11:35)
[2018-12-26] MEDS ORDERED: FAMOTIDINE 20 MG/2 ML VIAL IVP STA (11:35)
[2018-12-26] MEDS ORDERED: ONDANSETRON 4 MG/2 ML VIAL IVP STA (11:35)
[2018-12-26 12:11] LABS: MAGNESIUM 2.4 mg/dL (1.7-2.8)
[2018-12-26 12:14] LABS: CRP - C-REACTIVE PROTEIN < 1.0 mg/dL (0-1.0)
[2018-12-26 14:13] VITALS: BP 105/69
== END 2018-12-26 14:32 | disposition home or self-care (01) ==
LOC: ED 10:10
DX: R19.7 Diarrhea, unspecified (principal); R11.0 Nausea; R53.1 Weakness; F17.200 Nicotine dependence, unspecified, uncomplicated
CPT/HCPCS: 36415; 80053; 81001; 81003; 81025; 83690; 83735; 84443; 85025; 85651; 86140; 87086; 96374; 99284

== ENCOUNTER 2021-03-28 03:38 | Emergency (ER) | payer OTHER ==
--- NOTE | 2021-03-28 04:51 | ED Physician Documentation ---
History of Present Illness - Stated complaint Stated Complaint: HIGH HR, CHEST PX, SOA, SWETTING - Chief complaint Chief Complaint: Cardiac - History obtained from History obtained from: Patient - History of Present Illness Timing: How many weeks ago (2) - Additonal information Additional information: 40 y/o female with a history of Graves disease has developed night sweats and she feels her heart rate is too fast. She has noted it to be 90 and it is usually 60. She has not changed her dose of synthroid and she has had her thyroid irradiated and she is on replacement. She was unable to sleep because of the "rapid" heart rate. Review of Systems Constitutional: reports: Fatigue, Sweats. 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 : None HEENT: None Psych: Anxiety Musculoskeletal: None Derm: None - Past Surgical History Past Surgical History: No - Present Medications Home Medications: Ambulatory Orders Medication Instructions Recorded Confirmed Levothyroxine Sodium [Synthroid] 125 mcg PO DAILY 12/15/17 12/15/17 Albuterol Sulfate [Albuterol 8.5 gm IH PRN PRN 09/01/18 09/01/18 Sulfate Hfa] metroNIDAZOLE [Flagyl] 500 mg PO BID #14 tablet 09/01/18 Cetirizine [ZyrTEC] 10 mg PO DAILY #14 tablet 11/14/18 Chlorhexidine Gluconate [Peridex] 15 ml MM TID #120 ml 11/14/18 Hydrocodone/Acetaminophen 1 tab PO Q6H PRN #10 tablet 11/14/18 [Hydrocodon-Acetaminophen 5-325] cephALEXin [Keflex] 500 mg PO Q6H #28 capsule 11/14/18 Famotidine 20 mg PO DAILY #30 tablet 12/26/18 Loperamide [Imodium] 2 mg PO QID PRN #20 capsule 12/26/18 Ondansetron Odt [Zofran] 4 mg TL Q6H PRN #15 tablet 12/26/18 Saccharomyces Boulardii [Florastor] 250 mg PO BID #14 capsule 12/26/18 metroNIDAZOLE [Flagyl] 500 mg PO BID #14 tablet 12/26/18 - Allergies Allergies/Adverse Reactions: Allergies Allergy/AdvReac Type Severity Reaction Status Date / Time No Known Drug Allergies Allergy Verified 03/28/21 04:00 - Social History Does the pt smoke?: Yes Smoking Status: Current every day smoker Does the pt drink ETOH?: No Does the pt have substance abuse?: No - Immunizations Immunizations are current?: Yes - POLST Patient has POLST: No PD ED PE NORMAL - Vitals Vital signs reviewed: Yes (hypertensive mild ) - General General: Alert and oriented X 3, No acute distress, Well developed/nourished - HEENT HEENT: Atraumatic, PERRL, EOMI - Neck Neck: Supple, no meningeal sign, No bony TTP - Cardiac Cardiac: RRR, No murmur - Respiratory Respiratory: No respiratory distress, Clear bilaterally - Abdomen Abdomen: Normal bowel sounds, Soft, Non tender, Non distended, No organomegaly - Back Back: No CVA TTP, No spinal TTP - Derm Derm: Normal color, Warm and dry, No rash - Extremities Extremities: No deformity, No edema - Neuro Neuro: Alert and oriented X 3, addictions counselor 2-12 intact, No motor deficit, No sensory deficit, Normal speech Eye Opening: Spontaneous Motor: Obeys Commands Verbal: Oriented GCS Score: 15 - Psych Psych: Normal mood, Normal affect Results - Vitals Vitals: Vital Signs - 24 hr 03/28/21 03/28/21 03/28/21 03:57 05:59 06:39 Temperature 36.4 C L Heart Rate 89 91 75 Respiratory 14 18 18 Rate Blood Pressure 139/92 H 127/77 135/77 H O2 Saturation 97 97 98 Oxygen O2 Source Room air - EKG (time done) 0348 Rate: Rate (enter#) (89) Rhythm: NSR Ischemia: Q waves Compare to prior EKG: Changed from prior EKG (SPT 11-14-2018 rate is faster. ) Computer interpretation: Agree with computer - Labs Labs: Laboratory Tests 03/28/21 03/28/2121 05:32 05:32 05:32 WBC 5.4 RBC 4.06 L Hgb 11.9 L Hct 35.7 L MCV 87.9 MCH 29.3 MCHC 33.3 RDW 12.4 Plt Count 251 MPV 10.1 Neut # (Auto) 3.0 Lymph # (Auto) 1.4 L [place] # (Auto) 0.6 Eos # (Auto) 0.3 Baso # (Auto) 0.1 Absolute Nucleated RBC 0.00 Nucleated RBC % 0.0 Sodium 134 L Potassium 3.6 Chloride 105 Carbon Dioxide 21 Anion Gap 8.0 BUN 16 Creatinine 0.8 Estimated GFR (MDRD) 80 L Glucose 103 H Calcium 8.8 Total Bilirubin 0.5 AST 11 ALT < 10 L Alkaline Phosphatase 34 L Total Protein 6.7 Albumin 3.8 Globulin 2.9 Albumin/Globulin Ratio 1.3 Lipase 30 TSH 2.51 Thyroxine (T4) 8.04 Procedures - IVC sono (time) 04 Bedside IVC sono: IVC measures (cm) (1.6), IVC collapsed c insp (cm) (0.8), Euvolemia PD MEDICAL DECISION MAKING - ED course Complexity details: reviewed results, re-evaluated patient, considered differential, d/w patient ED course: 40 y/o female with night sweats has regular periods and today she is found to be euvolemic on interrogation of the IVC and we have checked her thyroid functions and they are normal. Menopause seems early for this lady and she has regular periods. Departure - Departure Disposition: 01 Home, Self Care Clinical Impression: Night sweats Condition: Stable Instructions: Sleep Life Stages Women Follow-Up: [facility] [Provider Group] Comments: Nahomy Heredia we did not find an abnormality to account for rapid heart rate. The dramatic sweats you are having could be due to early menopause and the recommendation is to follow up with your primary to have your hormone levels checked. Discharge Date/Time: 03/28/21 06:43
[2021-03-28 05:36] LABS: BASOPHILS # (AUTO) 0.1 10^3/uL (0.0-0.1); BASOPHILS % (AUTO) 1.3 %; EOSINOPHILS # (AUTO) 0.3 10^3/uL (0.0-0.7); EOSINOPHILS % (AUTO) 6.3 %; HCT - HEMATOCRIT 35.7 % (37.0-47.0); HGB - HEMOGLOBIN 11.9 g/dL (12.0-16.0); LYMPHOCYTES # (AUTO) 1.4 10^3/uL (1.5-3.5); LYMPHOCYTES % (AUTO) 26.2 %; MEAN CORPUSCULAR HEMOGLOBIN 29.3 pg (27.0-31.0); MEAN CORPUSCULAR HGB CONC 33.3 g/dL (32.0-36.0); MEAN CORPUSCULAR VOLUME 87.9 fL (81.0-99.0); MEAN PLATELET VOLUME 10.1 fL (7.9-10.8); MONOCYTES # (AUTO) 0.6 10^3/uL (0.0-1.0); MONOCYTES % (AUTO) 11.3 %; NEUTROPHILS % (AUTO) 54.5 %; PLT - PLATELET COUNT 251 10^3/uL (130-450); RED BLOOD COUNT 4.06 10^6/uL (4.20-5.40); RED CELL DISTRIBUTION WIDTH 12.4 % (12.0-15.0); WHITE BLOOD COUNT 5.4 x10^3/uL (4.8-10.8)
[2021-03-28 05:50] LABS: ALBUMIN 3.8 g/dL (3.2-5.5); ALBUMIN/GLOBULIN RATIO 1.3 (1.0-2.2); ALKALINE PHOSPHATASE 34 IU/L (42-121); ALT ALANINE AMINOTRANSFERASE < 10 IU/L (10-60); AST ASPARTATE AMINOTRANSFERASE 11 IU/L (10-42); BILIRUBIN,TOTAL 0.5 mg/dL (0.2-1.0); BUN - BLOOD UREA NITROGEN 16 mg/dL (6-20); CALCIUM 8.8 mg/dL (8.5-10.3); CARBON DIOXIDE - CO2 21 mmol/L (21-32); CHLORIDE 105 mmol/L (101-111); CREATININE 0.8 mg/dL (0.4-1.0); GFR - MDRD 80 (>89); GLUCOSE 103 mg/dL (70-100); LIPASE 30 U/L (22-51); POTASSIUM 3.6 mmol/L (3.5-5.0); SODIUM 134 mmol/L (135-145); TOTAL PROTEIN 6.7 g/dL (6.7-8.2)
[2021-03-28 06:02] LABS: T4 (THYROXINE) 8.04 ug/dL (6.09-12.23)
[2021-03-28 06:06] LABS: THYROID STIMULATING HORMONE 2.51 uIU/mL (0.34-5.60)
[2021-03-28 06:39] VITALS: BP 135/77
== END 2021-03-28 06:43 | disposition home or self-care (01) ==
LOC: ED 03:38
DX: R61 Generalized hyperhidrosis (principal); E05.00 Thyrotoxicosis with diffuse goiter without thyrotoxic crisis or storm; F17.200 Nicotine dependence, unspecified, uncomplicated
CPT/HCPCS: 36415; 80053; 83690; 84436; 84443; 85025; 93005; 99283; 99284

== ENCOUNTER 2022-04-26 08:18 | Emergency (ER) | payer OTHER ==
--- NOTE | 2022-04-26 08:44 | ED Physician Documentation ---
PD HPI ABD PAIN - Stated complaint Stated Complaint: ABD PRESSURE - Chief complaint Chief Complaint: Abd Pain - History obtained from History obtained from: Patient, Family - Additional information Additional information: 41-year-old woman with history of IBS, diverticulosis and polyps on colonoscopy 3 years ago, no history of abdominal surgeries. She had 2 weeks of fairly constant left lower quadrant pain associated with initially loose stools and then diarrhea now improving. She is had some mild nausea with it but thinks that might be because she is a little panicky. She has a specific worry about colon cancer as a friend was recently diagnosed. Pain worsens if she flexes her left hip. She is on about day 20 of her menstrual cycle which has been regular. She doubts the possibility of . Review of Systems Constitutional: denies: Fever, Chills GI: reports: Abdominal Pain, Nausea, Diarrhea. 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 : None HEENT: None Psych: Anxiety Musculoskeletal: None Derm: None - Past Surgical History Past Surgical History: No - Present Medications Home Medications: Ambulatory Orders Medication Instructions Recorded Confirmed Levothyroxine Sodium [Synthroid] 125 mcg PO DAILY 12/15/17 12/15/17 Albuterol Sulfate [Albuterol 8.5 gm IH PRN PRN 09/01/18 09/01/18 Sulfate Hfa] metroNIDAZOLE [Flagyl] 500 mg PO BID #14 tablet 09/01/18 Cetirizine [ZyrTEC] 10 mg PO DAILY #14 tablet 11/14/18 Chlorhexidine Gluconate [Peridex] 15 ml MM TID #120 ml 11/14/18 Hydrocodone/Acetaminophen 1 tab PO Q6H PRN #10 tablet 11/14/18 [Hydrocodon-Acetaminophen 5-325] cephALEXin [Keflex] 500 mg PO Q6H #28 capsule 11/14/18 Famotidine 20 mg PO DAILY #30 tablet 12/26/18 Loperamide [Imodium] 2 mg PO QID PRN #20 capsule 12/26/18 Ondansetron Odt [Zofran] 4 mg TL Q6H PRN #15 tablet 12/26/18 Saccharomyces Boulardii [Florastor] 250 mg PO BID #14 capsule 12/26/18 metroNIDAZOLE [Flagyl] 500 mg PO BID #14 tablet 12/26/18 Ciprofloxacin HCl [Cipro] 500 mg PO BID #14 tablet 04/26/22 metroNIDAZOLE [Flagyl] 500 mg PO TID 7 Days #21 tablet 04/26/22 - Allergies Allergies/Adverse Reactions: Allergies Allergy/AdvReac Type Severity Reaction Status Date / Time No Known Drug Allergies Allergy Verified 04/26/22 08:33 - Social History Does the pt smoke?: Yes Smoking Status: Current every day smoker Does the pt drink ETOH?: No Does the pt have substance abuse?: No - Immunizations Immunizations are current?: Yes - POLST Patient has POLST: No PD ED PE NORMAL - Vitals Vital signs reviewed: Yes - General General: Alert and oriented X 3, No acute distress - Cardiac Cardiac: RRR, No murmur - Respiratory Respiratory: No respiratory distress, Clear bilaterally - Abdomen Abdomen: Normal bowel sounds, Soft, Non tender - Back Back: No CVA TTP, No spinal TTP - Derm Derm: Normal color, Warm and dry - Extremities Extremities: No edema, No calf tenderness / cord - Neuro Neuro: Alert and oriented X 3, Normal speech Results - Vitals Vitals: Vital Signs - 24 hr 04/26/22 08:30 Temperature 37.3 C Heart Rate 95 Respiratory 20 Rate Blood Pressure 151/81 H O2 Saturation 99 Oxygen O2 Source Room air - Labs Labs: Laboratory Tests 04/26/22 04/26/22 04/26/22 08:50 08:52 08:52 WBC 4.4 L RBC 4.54 Hgb 13.1 Hct 40.1 MCV 88.3 MCH 28.9 MCHC 32.7 RDW 12.7 Plt Count 273 MPV 10.5 Neut # (Auto) 2.1 Lymph # (Auto) 1.4 L [place] # (Auto) 0.5 Eos # (Auto) 0.3 Baso # (Auto) 0.1 Absolute Nucleated RBC 0.00 Nucleated RBC % 0.0 Sodium 132 L Potassium 3.8 Chloride 102 Carbon Dioxide 22 Anion Gap 8.0 BUN 10 Creatinine 0.8 Estimated GFR (MDRD) 79 L Glucose 97 Calcium 9.1 Total Bilirubin 0.8 AST 14 ALT 10 Alkaline Phosphatase 36 L Total Protein 8.4 H Albumin 4.5 Globulin 3.9 Albumin/Globulin Ratio 1.2 Lipase 30 Urine Color LT. YELLOW Urine Clarity CLEAR Urine pH 6.0 Ur Specific [place] <=1.005 Urine Protein NEGATIVE Urine Glucose (UA) NEGATIVE Urine Ketones NEGATIVE Urine Occult Blood TRACE-INTA Urine Nitrite NEGATIVE Urine Bilirubin NEGATIVE Urine Urobilinogen 0.2 (NORMAL) Ur Leukocyte Esterase NEGATIVE Ur Microscopic Review NOT INDICATED Urine Culture Comments NOT INDICATED Urine HCG, Qual NEGATIVE PD Medical Decision Making - ED course ED course: Otherwise healthy 41-year-old woman presents with left lower quadrant pain and diarrhea. Differential diagnosis includes colitis, diverticulitis, or other more severe intra-abdominal emergency. Lab work reviewed: CBC: Mild lymphopenia CMP, mild hyponatremia Urinalysis negative: test negative. CT of the abdomen pelvis with IV contrast interpreted independently by me and also final report received showing changes consistent with enterocolitis with a small amount of ascites. Given the ascites I did a phone consult with the on-call surgeon (Kee Mancia) who felt that this was likely just related to her enterocolitis and can be treated with antibiotics. Departure - Departure Disposition: Home, Self Care Clinical Impression: Enterocolitis Condition: Good Record reviewed to determine appropriate education?: Yes Instructions: ED Gastroenteritis Bacterial Prescriptions: Ciprofloxacin HCl [Cipro] 500 mg PO BID #14 tablet metroNIDAZOLE [Flagyl] 500 mg PO TID 7 Days #21 tablet Comments: As discussed, your CAT scan showed a case of enterocolitis, we are treating this with antibiotics. I sent your prescription electronically to the [facility] in [place]. It sounds like you were seeing a gastroenterology PA previously at [facility]. There are 3 of them: Pamela Dawson. Phone number is the same for each, Reasonable to follow-up in a week if not better, call for an appointment. Return for new or worsening symptoms.
[2022-04-26] MEDS ORDERED: iohexoL-300 100 ML VIAL ONE (08:47)
[2022-04-26 08:56] LABS: BASOPHILS # (AUTO) 0.1 10^3/uL (0.0-0.1); BASOPHILS % (AUTO) 1.4 %; EOSINOPHILS # (AUTO) 0.3 10^3/uL (0.0-0.7); EOSINOPHILS % (AUTO) 6.1 %; HCT - HEMATOCRIT 40.1 % (37.0-47.0); HGB - HEMOGLOBIN 13.1 g/dL (12.0-16.0); LYMPHOCYTES # (AUTO) 1.4 10^3/uL (1.5-3.5); LYMPHOCYTES % (AUTO) 32.6 %; MEAN CORPUSCULAR HEMOGLOBIN 28.9 pg (27.0-31.0); MEAN CORPUSCULAR HGB CONC 32.7 g/dL (32.0-36.0); MEAN CORPUSCULAR VOLUME 88.3 fL (81.0-99.0); MEAN PLATELET VOLUME 10.5 fL (7.9-10.8); MONOCYTES # (AUTO) 0.5 10^3/uL (0.0-1.0); MONOCYTES % (AUTO) 11.5 %; NEUTROPHILS # (AUTO) 2.1 10^3/uL (1.5-6.6); NEUTROPHILS % (AUTO) 48.2 %; PLT - PLATELET COUNT 273 10^3/uL (130-450); RED BLOOD COUNT 4.54 10^6/uL (4.20-5.40); RED CELL DISTRIBUTION WIDTH 12.7 % (12.0-15.0); WHITE BLOOD COUNT 4.4 x10^3/uL (4.8-10.8)
[2022-04-26 09:11] LABS: ALBUMIN 4.5 g/dL (3.2-5.5); ALBUMIN/GLOBULIN RATIO 1.2 (1.0-2.2); BILIRUBIN,TOTAL 0.8 mg/dL (0.2-1.0); CALCIUM 9.1 mg/dL (8.5-10.3); CREATININE 0.8 mg/dL (0.4-1.0); POTASSIUM 3.8 mmol/L (3.5-5.0); TOTAL PROTEIN 8.4 g/dL (6.7-8.2)
--- NOTE | 2022-04-26 09:56 | CT Report ---
PROCEDURE: ABDOMEN/PELVIS W INDICATIONS: IV only, LLQ pain CONTRAST: 100ml omni 300 TECHNIQUE: After the administration of IV contrast, 5 mm thick sections acquired from the diaphragms to the symp hysis. 5 mm thick coronal and sagittal reformats were acquired. For radiation dose reduction, the f ollowing was used: automated exposure control, adjustment of mA and/or kV according to patient size. COMPARISON: None. FINDINGS: Image quality: Excellent. ABDOMEN: Lung bases: Lung bases are clear. Heart size is normal. Solid organs: There is a right liver dome liver hemangioma seen, with peripheral puddling of contras t, measuring 2.27 m. Adjacent to this, a likely additional liver hemangiomas seen measuring 8 mm. The liver demonstrates normal size and demonstrates no suspicious lesions. Gallbladder wall does not a ppear thickened. Biliary system is non dilated. The spleen demonstrates normal size and demonstrat es no suspicious lesions. Pancreas enhances normally. No adrenal nodules. Kidneys demonstrate norm al size and enhancement, without hydronephrosis. Peritoneum and bowel: The colon demonstrates generalized moderate wall thickening, particularly proxi radha. The small bowel demonstrates generalized wall thickening and hyperenhancement. There is a mild amount of layering ascites seen. The stomach is relatively decompressed. No free air is seen. No loculated abscess is seen. Nodes and vessels: No retroperitoneal or mesenteric adenopathy by size criteria. Aorta and inferior vena cava are normal in size. Miscellaneous: No ventral hernias. Incidental note is made of body ornamentation artifact. PELVIS: Genitourinary: Bladder wall thickness is normal. The uterus demonstrates an unremarkable appearance for age. No adnexal masses are seen. Miscellaneous: No inguinal hernias or adenopathy. Bones: No suspicious bony lesions. No vertebral body compression fractures. IMPRESSION: Wall thickening and hyperenhancement seen of the small bowel, with wall thickening seen of the colon, particularly proximally. Enterocolitis is suspected. No findings of perforation or abscess can be seen. There is a mild amount of layering ascites. Additional findings: Apparent liver hemangiomas Reviewed by: Piero Briones MD on 04/26/2022 8:55 AM [facility] Approved by: Piero Briones MD on 04/26/2022 8:55 AM [facility] Station ID: [id number]
[2022-04-26] MEDS ORDERED: iohexoL-300 100 ML VIAL IVP ONE (10:19)
[2022-04-26 10:21] VITALS: BP 128/81
== END 2022-04-26 10:20 | disposition home or self-care (01) ==
LOC: ED 08:18
DX: K52.9 Noninfective gastroenteritis and colitis, unspecified (principal); F17.200 Nicotine dependence, unspecified, uncomplicated
CPT/HCPCS: 36415; 74177; 80053; 83690; 85025; 99284; Q9967; 81001; 81003; 81025; 87086

== ENCOUNTER 2022-04-29 06:48 | Emergency (ER) | payer OTHER ==
[2022-04-29 07:30] LABS: ALBUMIN 4.7 g/dL (3.2-5.5); ALBUMIN/GLOBULIN RATIO 1.2 (1.0-2.2); ALKALINE PHOSPHATASE 37 IU/L (42-121); ALT ALANINE AMINOTRANSFERASE < 10 IU/L (10-60); AST ASPARTATE AMINOTRANSFERASE 14 IU/L (10-42); BILIRUBIN,TOTAL 1.3 mg/dL (0.2-1.0); BUN - BLOOD UREA NITROGEN 9 mg/dL (6-20); CALCIUM 9.3 mg/dL (8.5-10.3); CARBON DIOXIDE - CO2 22 mmol/L (21-32); CHLORIDE 99 mmol/L (101-111); CREATININE 0.9 mg/dL (0.4-1.0); GFR - MDRD 69 (>89); GLUCOSE 97 mg/dL (70-100); LIPASE 30 U/L (22-51); POTASSIUM 3.6 mmol/L (3.5-5.0); SODIUM 131 mmol/L (135-145); TOTAL PROTEIN 8.7 g/dL (6.7-8.2)
[2022-04-29 07:37] LABS: BASOPHILS # (AUTO) 0.1 10^3/uL (0.0-0.1); BASOPHILS % (AUTO) 1.9 %; EOSINOPHILS # (AUTO) 0.2 10^3/uL (0.0-0.7); EOSINOPHILS % (AUTO) 5.5 %; HGB - HEMOGLOBIN 13.8 g/dL (12.0-16.0); LYMPHOCYTES # (AUTO) 1.4 10^3/uL (1.5-3.5); LYMPHOCYTES % (AUTO) 34.3 %; MEAN CORPUSCULAR HEMOGLOBIN 29.1 pg (27.0-31.0); MEAN CORPUSCULAR HGB CONC 32.9 g/dL (32.0-36.0); MEAN CORPUSCULAR VOLUME 88.4 fL (81.0-99.0); MEAN PLATELET VOLUME 10.5 fL (7.9-10.8); MONOCYTES # (AUTO) 0.5 10^3/uL (0.0-1.0); MONOCYTES % (AUTO) 11.4 %; NEUTROPHILS % (AUTO) 46.4 %; PLT - PLATELET COUNT 278 10^3/uL (130-450); RED BLOOD COUNT 4.75 10^6/uL (4.20-5.40); RED CELL DISTRIBUTION WIDTH 12.2 % (12.0-15.0); WHITE BLOOD COUNT 4.2 x10^3/uL (4.8-10.8)
[2022-04-29 08:41] LABS: BILIRUBIN,URINE NEGATIVE (NEGATIVE); GLUCOSE, URINE (UA) NEGATIVE (NEGATIVE); KETONES,URINE (UA) NEGATIVE (NEGATIVE); LEUKOCYTE ESTERASE, URINE NEGATIVE (NEGATIVE); NITRITE,URINE NEGATIVE (NEGATIVE); OCCULT BLOOD,URINE TRACE-INTA (NEGATIVE); PROTEIN,URINE NEGATIVE (NEGATIVE); UROBILINOGEN,URINE 0.2 (NORMAL) E.U./dL (NORMAL)
[2022-04-29 08:49] LABS: CLARITY,URINE CLEAR (CLEAR); HCG UR QUAL NEGATIVE
[2022-04-29] MEDS ORDERED: iohexoL-300 100 ML VIAL ONE (11:09)
[2022-04-29] MEDS: SODIUM CHLORIDE 0.9% 1,000 ML IV STA (11:34)
--- NOTE | 2022-04-29 12:14 | CT Report ---
PROCEDURE: ABDOMEN/PELVIS W INDICATIONS: Left sided pain/worsening CONTRAST: 100ml Omnipaque 300 TECHNIQUE: After the administration of intermedius contrast, 5 mm thick sections acquired from the diaphragms to the symphysis. 5 mm thick coronal and sagittal reformats were acquired. For radiation dose reducti on, the following was used: automated exposure control, adjustment of mA and/or kV according to jocelyne ent size. COMPARISON: 04/26/2022. FINDINGS: Image quality: Excellent. ABDOMEN: Lung bases: Lung bases are clear. Heart size is normal. Solid organs: Liver is normal in size. There is a 2.3 cm hypodense nodule in the posterior segment o f the right hepatic lobe demonstrating peripheral nodular enhancement, most likely a hepatic hemangio ma. A smaller 0.6 cm hypodense nodule in the posterior segment of the right hepatic lobe more inferio rly also demonstrates subtle nodular enhancement, most likely a hemangioma. Spleen is normal in size and enhancement. Gallbladder is normal. Biliary system is non dilated. Pa ncreas enhances normally. No adrenal nodules. Kidneys demonstrate normal size and enhancement, with out hydronephrosis. Peritoneum and bowel: Mild arthritic wall thickening and increased enhancement suggesting gastritis. Small bowel loops demonstrate normal wall thickness and caliber. Subtle increased mucosal enhancemen t of small intestine. There is mild diffuse wall thickening of colon. A few colonic diverticula are present. No CT findings to suggest acute diverticulitis. A small amount of free fluid is present, sim ilar when compared to last exam. No free air. Nodes and vessels: No retroperitoneal or mesenteric adenopathy by size criteria. Aorta and inferior vena cava are normal in size. Miscellaneous: No ventral hernias. PELVIS: Genitourinary: Bladder wall thickness is normal. Uterus is normal. There is a 1.5 cm rim-enhancing cyst in left ovary. A 1.2 x 1.4 cm rim-enhancing cyst is also seen in the right ovary. Pulses are mo st likely a corpus luteal cysts. Miscellaneous: No inguinal hernias or adenopathy. Bones: No suspicious bony lesions. No vertebral body compression fractures. IMPRESSION: 1. The CT findings are most compatible with gastroenterocolitis. No findings to suggest small bowel o bstruction. 2. Mild diverticulosis. No acute diverticulitis. 3. Bilateral corpus luteal cysts. There are small amount of free fluid in pelvis, similar when compar ed to last exam. 4. 2 hepatic hemangiomas. Reviewed by: Sylvia Boyd MD on 04/29/2022 11:12 AM [facility] Approved by: Sylvia Boyd MD on 04/29/2022 11:12 AM [facility] Station ID: [id number]
--- NOTE | 2022-04-29 12:48 | ED Physician Documentation ---
PD HPI ABD PAIN - Stated complaint Stated Complaint: ABD PX,DIARRHEA - Chief complaint Chief Complaint: Abd Pain - History obtained from History obtained from: Patient - Additional information Additional information: Patient is a 41-year-old female presenting for evaluation of diarrhea and intermittent abdominal pain. The patient reports she was seen here on Wednesday for similar symptoms and diagnosed with enterocolitis and started on Cipro and Flagyl. She says that she is continued to have several episodes of watery diarrhea primarily in the morning and does not feel like she is getting better. She has not been able to follow-up with her GI doctor or PCP yet. She denies fever, chest pain, difficulty breathing. She denies blood in her stools. She denies recent antibiotic use other than the med she was started on a few days ago. She denies a history of C. difficile.She reports decreased p.o. intake because she is worried will give her more diarrhea. Review of Systems Constitutional: denies: Fever Nose: denies: Congestion Cardiac: denies: Chest pain / pressure Respiratory: denies: Dyspnea GI: reports: Abdominal Pain, Diarrhea. denies: Vomiting, Constipation : denies: Dysuria Musculoskeletal: denies: Back pain Neurologic: denies: Headache PD PAST MEDICAL HISTORY - Past Medical History Past Medical History: Yes Cardiovascular: None Respiratory: None Neuro: None Endocrine/Autoimmune: HyPOthyroidism GI: Other CROSS CUT SAWYER: Ovarian cysts : None HEENT: None Psych: Anxiety Musculoskeletal: None Derm: None Other Past Medical History: IBS - Past Surgical History Past Surgical History: No - Present Medications Home Medications: Ambulatory Orders Medication Instructions Recorded Confirmed Levothyroxine Sodium [Synthroid] 125 mcg PO DAILY 12/15/17 12/15/17 Albuterol Sulfate [Albuterol 8.5 gm IH PRN PRN 09/01/18 09/01/18 Sulfate Hfa] metroNIDAZOLE [Flagyl] 500 mg PO BID #14 tablet 09/01/18 Cetirizine [ZyrTEC] 10 mg PO DAILY #14 tablet 11/14/18 Chlorhexidine Gluconate [Peridex] 15 ml MM TID #120 ml 11/14/18 Hydrocodone/Acetaminophen 1 tab PO Q6H PRN #10 tablet 11/14/18 [Hydrocodon-Acetaminophen 5-325] cephALEXin [Keflex] 500 mg PO Q6H #28 capsule 11/14/18 Famotidine 20 mg PO DAILY #30 tablet 12/26/18 Loperamide [Imodium] 2 mg PO QID PRN #20 capsule 12/26/18 Ondansetron Odt [Zofran] 4 mg TL Q6H PRN #15 tablet 12/26/18 Saccharomyces Boulardii [Florastor] 250 mg PO BID #14 capsule 12/26/18 metroNIDAZOLE [Flagyl] 500 mg PO BID #14 tablet 12/26/18 Ciprofloxacin HCl [Cipro] 500 mg PO BID #14 tablet 04/26/22 metroNIDAZOLE [Flagyl] 500 mg PO TID 7 Days #21 tablet 04/26/22 - Allergies Allergies/Adverse Reactions: Allergies Allergy/AdvReac Type Severity Reaction Status Date / Time No Known Drug Allergies Allergy Verified 04/26/22 08:33 - Social History Does the pt smoke?: Yes Smoking Status: Current every day smoker Does the pt drink ETOH?: No Does the pt have substance abuse?: No - Immunizations Immunizations are current?: Yes - POLST Patient has POLST: No PD ED PE NORMAL - General General: Alert and oriented X 3, No acute distress, Well developed/nourished - HEENT HEENT: Atraumatic - Neck Neck: Supple, no meningeal sign - Cardiac Cardiac: RRR, No murmur - Respiratory Respiratory: No respiratory distress, Clear bilaterally - Abdomen Abdomen: Normal bowel sounds, Soft, Non tender, Non distended - Derm Derm: Warm and dry - Extremities Extremities: No edema Results - Vitals Vitals: Oxygen O2 Source Room air - Labs Labs: Laboratory Tests 04/29/22 04/29/22 04/29/22 07:13 07:13 08:07 WBC 4.2 L RBC 4.75 Hgb 13.8 Hct 42.0 MCV 88.4 MCH 29.1 MCHC 32.9 RDW 12.2 Plt Count 278 MPV 10.5 Neut # (Auto) 2.0 Lymph # (Auto) 1.4 L [place] # (Auto) 0.5 Eos # (Auto) 0.2 Baso # (Auto) 0.1 Absolute Nucleated RBC 0.00 Nucleated RBC % 0.0 Sodium 131 L Potassium 3.6 Chloride 99 L Carbon Dioxide 22 Anion Gap 10.0 BUN 9 Creatinine 0.9 Estimated GFR (MDRD) 69 L Glucose 97 Calcium 9.3 Total Bilirubin 1.3 H AST 14 ALT < 10 L Alkaline Phosphatase 37 L Total Protein 8.7 H Albumin 4.7 Globulin 4.0 Albumin/Globulin Ratio 1.2 Lipase 30 Urine Color YELLOW Urine Clarity CLEAR Urine pH 6.0 Ur Specific [place] <=1.005 Urine Protein NEGATIVE Urine Glucose (UA) NEGATIVE Urine Ketones NEGATIVE Urine Occult Blood TRACE-INTA Urine Nitrite NEGATIVE Urine Bilirubin NEGATIVE Urine Urobilinogen 0.2 (NORMAL) Ur Leukocyte Esterase NEGATIVE Ur Microscopic Review NOT INDICATED Urine Culture Comments NOT INDICATED Urine HCG, Qual NEGATIVE PD Medical Decision Making - ED course ED course: Pt presenting for evaluation of continued diarrhea and generalized abdominal discomfort. Seen few days ago for same and found to have enterocolitis and started on antibiotics. VSS and labs reviewed without significant findings. ABdominal exam is benign but given patient's concerns repeat imaging was obtained and found to have no significant changes from previous. Pt denies pelvic pain to suggest ovarian process. She was unable to give stool specimen. She has previously seen GI in [facility] for IBS and was advised on making a follow up with GI and PCP. Pt comfortable with plan for discharge. Departure - Departure Disposition: 01 Home, Self Care Clinical Impression: Enterocolitis Condition: Stable Instructions: ED Gastroenteritis Bacterial Follow-Up: [facility] [Provider Group] Comments: Your CT scan is unchanged and still shows enterocolitis. I would continue with antibiotics if you are able to tolerate them. You are not able to give us a stool sample which may also be helpful. I would encourage you to have [facility] as [facility] as your GI group for further evaluation. It is important to stay hydrated and try to get some nutrition in. If you have any worsening symptoms please consider return to the ER. Discharge Date/Time: 04/29/22 13:07
[2022-04-29 13:01] VITALS: BP 128/77
[2022-04-29] MEDS: iohexoL-300 100 ML VIAL IVP ONE (16:26)
== END 2022-04-29 13:07 | disposition home or self-care (01) ==
LOC: ED 06:48
DX: K52.9 Noninfective gastroenteritis and colitis, unspecified (principal); F17.200 Nicotine dependence, unspecified, uncomplicated
CPT/HCPCS: 36415; 74177; 80053; 81003; 81025; 83690; 85025; 99283; 99284; Q9967; 81001; 87086